=== PATIENT | female | born 1935 | race Caucasian/White ===

== ENCOUNTER 2019-03-30 10:17 | Emergency (ER) | payer MEDICARE, MEDICAID ==
[~2019-03-30] VITALS: Ht 160 cm; Wt 63.0 kg
[~2019-03-30 10:17] MED LIST: ALEN70TA68 MT; LEVO50TA8 MT
[2019-03-30] MEDS ORDERED: ACETAMINOPHEN 325MG TABLET PO ONE (11:00)
[2019-03-30 13:59] VITALS: BP 133/67
== END 2019-03-30 14:00 | disposition home or self-care (01) ==
LOC: ER 10:36
DX: S00.83XA Contusion of other part of head, initial encounter (principal); R07.2 Precordial pain; W18.39XA Other fall on same level, initial encounter; Y93.89 Activity, other specified; Y92.811 Bus as the place of occurrence of the external cause; E03.9 Hypothyroidism, unspecified; G89.4 Chronic pain syndrome; M25.562 Pain in left knee; M25.561 Pain in right knee; Z87.39 Personal history of other diseases of the musculoskeletal system and connective tissue
CPT/HCPCS: 70486; 99284